=== PATIENT | female | born 1995 | race Two or more races ===

== ENCOUNTER 2019-08-02 16:10 | Inpatient (IN) | payer OTHER, MEDICAID ==
[~2019-08-02] VITALS: Ht 162.6 cm; Wt 64.4 kg
[2019-08-02 16:53] VITALS: BP 110/72
[2019-08-02] MEDS ORDERED: METHYLERGONOVINE 0.2 MG/ML AMP IM PRN ×2 (17:35→23:45)
[2019-08-02] MEDS ORDERED: NALBUPHINE 10 MG/ML AMP IVP PRN (17:35)
[2019-08-02] MEDS ORDERED: CARBOPROST 250 MCG/ML AMP IM PRN (17:35)
[2019-08-02] MEDS ORDERED: PROMETHAZINE 25 MG/ML VIAL IVP PRN (17:35)
[2019-08-02] MEDS ORDERED: OXYTOCIN 20 UNITS in LACTATED RINGERS 1,000 ML IV SCH (17:35)
[2019-08-02] MEDS ORDERED: FERR-252 PO (18:37)
[2019-08-02] MEDS ORDERED: PREN-380 PO (18:37)
[2019-08-02 18:53] LABS: BASOPHILS # (AUTO) 0.1 K/uL (0.00-0.22); BASOPHILS % (AUTO) 0.7 % (0.0-2.0); EOSINOPHILS % (AUTO) 0.4 % (0.0-4.0); HEMATOCRIT 41.9 % (36-48); HEMOGLOBIN 14.3 g/dL (12.0-16.0); LYMPHOCYTES # (AUTO) 2.2 K/uL (2.5-16.5); LYMPHOCYTES % (AUTO) 22.4 % (20.5-51.1); MEAN CORPUSCULAR HEMOGLOBIN 34 pg (27-31); MEAN CORPUSCULAR HGB CONC 34 g/dL (33-37); MEAN CORPUSCULAR VOLUME 98.5 fL (80-94); MONOCYTES # (AUTO) 0.8 K/uL (0.8-1.0); MONOCYTES % (AUTO) 7.6 % (1.7-9.3); NEUTROPHILS # (AUTO) 6.8 K/uL (1.8-7.7); NEUTROPHILS % (AUTO) 68.9 % (42.2-75.2); PLATELET COUNT (AUTO) 214 K/uL (140-450); RED BLOOD CELL COUNT(AUTO) 4.25 MIL/uL (4.20-5.40); RED CELL DISTRIBUTION WIDTH 13.2 % (11.6-13.7); WHITE BLOOD COUNT (AUTO) 9.9 K/uL (4.8-10.8)
[2019-08-02 19:02] LABS: CARBON DIOXIDE 20.7 mmol/L (21-32); CREATININE 0.6 mg/dL (0.6-1.3); POTASSIUM 3.7 mmol/L (3.5-5.1)
[2019-08-02 19:08] LABS: ALBUMIN 2.9 g/dL (3.4-5.0); TOTAL BILIRUBIN 0.3 mg/dL (0.0-1.0)
[2019-08-02 19:13] LABS: APPEARANCE,URINE CLEAR (CLEAR); BILIRUBIN,URINE NEGATIVE (NEGATIVE); BLOOD, URINE 2+ (NEGATIVE); COLOR,URINE YELLOW (YELLOW); LEUKOCYTE ESTERASE ,URINE TRACE (NEGATIVE); NITRITE, URINE NEGATIVE (NEGATIVE); PH,URINE 5.5 (5.0-9.0); UGLUCOSE NEGATIVE (NEGATIVE)
[2019-08-02] MEDS: LACTATED RINGERS 1,000 ML IV SCH ×2 (20:00→21:00)
[2019-08-02 20:34] LABS: WBC,URINE 0-5 /HPF (0-5)
[2019-08-02] MEDS ORDERED: BENZOCAINE/MENTHOL 20%-0.5% 60 GM CAN TP PRN (23:45)
[2019-08-02] MEDS ORDERED: MEASLES, MUMPS, AND RUBELLA 1 VIAL SQVAC PRN (23:45)
[2019-08-02] MEDS ORDERED: METHYLERGONOVINE 0.2 MG TAB PO PRN (23:45)
[2019-08-03] MEDS ORDERED: IBUPROFEN 600 MG TAB PO SCH (08:00)
--- NOTE | 2019-08-03 08:06 | NUR ---
PATIENT HAS BEEN SCREENED AND CATEGORIZED LOW NUTRITION RISK. PATIENT WILL BE SEEN WITHIN 7 DAYS OF ADMISSION. 08/09/[address]
[2019-08-03 08:18] LABS: BASOPHILS % (AUTO) 0.4 % (0.0-2.0); EOSINOPHILS % (AUTO) 0.3 % (0.0-4.0); HEMATOCRIT 38.7 % (36-48); HEMOGLOBIN 13.1 g/dL (12.0-16.0); LYMPHOCYTES % (AUTO) 16.7 % (20.5-51.1); MEAN CORPUSCULAR HEMOGLOBIN 33 pg (27-31); MEAN CORPUSCULAR HGB CONC 34 g/dL (33-37); MEAN CORPUSCULAR VOLUME 98.8 fL (80-94); MONOCYTES # (AUTO) 1.1 K/uL (0.8-1.0); MONOCYTES % (AUTO) 8.9 % (1.7-9.3); NEUTROPHILS % (AUTO) 73.7 % (42.2-75.2); PLATELET COUNT (AUTO) 204 K/uL (140-450); RED BLOOD CELL COUNT(AUTO) 3.92 MIL/uL (4.20-5.40); WHITE BLOOD COUNT (AUTO) 12.2 K/uL (4.8-10.8)
[2019-08-03] MEDS ORDERED: DOCUSATE SOD/SENNA 50/8.6 MG 1 TAB PO SCH (21:00)
[2019-08-04] MEDS: IBUPROFEN 600 MG TAB PO SCH ×3 (00:01→12:15)
== END 2019-08-04 13:15 | disposition home or self-care (01) | DRG 807 ==
LOC: MLD 16:10 → OBSVTOIN 17:30 → MLD 17:31 → MFCC 23:59
PROVIDERS: ADMIT Obstetrics & Gynecology; ATTEND Obstetrics & Gynecology
PROC: 10E0XZZ Delivery of Products of Conception, External Approach (ICD-10-PCS; principal; 2019-08-02)
PROC: 3E0R3BZ Introduction of Anesthetic Agent into Spinal Canal, Percutaneous Approach (ICD-10-PCS; 2019-08-02)
PROC: 00HU33Z Insertion of Infusion Device into Spinal Canal, Percutaneous Approach (ICD-10-PCS; 2019-08-02)
PROC: 3E0234Z Introduction of Serum, Toxoid and Vaccine into Muscle, Percutaneous Approach (ICD-10-PCS; 2019-08-02)
PROC: 3E0134Z Introduction of Serum, Toxoid and Vaccine into Subcutaneous Tissue, Percutaneous Approach (ICD-10-PCS; 2019-08-02)
DX: O69.81X0 Labor and delivery complicated by cord around neck, without compression, not applicable or unspecified (principal); Z37.0 Single live birth; Z3A.39 39 weeks gestation of pregnancy; O71.82 Other specified trauma to perineum and vulva; Z23 Encounter for immunization
CPT/HCPCS: 36415; 59409; 80053; 81001; 85025; 86592; 86886; 86900; 86901; 90715; G0378; J7120

== ENCOUNTER 2022-07-06 09:07 | Emergency (ER) | payer MEDICAID, OTHER ==
[~2022-07-06] VITALS: Ht 162.6 cm; Wt 53.1 kg
[~2022-07-06 09:07] MED LIST: FERR-252 PO; PREN-380 PO
[2022-07-06 09:26] VITALS: BP 106/66
[2022-07-06] MEDS ORDERED: ACETAMINOPHEN EXTRA STRENGTH 500 MG TAB PO ONE (09:35)
--- NOTE | 2022-07-06 09:55 | NUR ---
PATIENT PRESENTS TO ED WITH FEVER BIB SELF FROM HOME. PT STATES SHE HAS HAD A FEVER FOR ABOUT 3 DAYS. DENIES N/V/D; SKIN IS PINK/WARM/DRY; AAOX4 WITH EVEN AND STEADY GAIT; LUNGS CLEAR BL, PT PRESENTS WITH COUGH; HR EVEN AND REGULAR HR TACHY; PT DENIES ANY CP, SOB, AT THIS TIME; PATIENT STATES PAIN OF 0/10 AT THIS TIME; VSS; PATIENT POSITIONED FOR COMFORT; HOB ELEVATED; BEDRAILS UP X2; BED DOWN. ER MD MADE AWARE OF PT STATUS. h/S: DENIES ALLERGIES: NKDA MEDS: TYLENOL NOTED BY SHELBY RODRIGUES RN
[2022-07-06] MEDS ORDERED: NACL 0.9% 1,000 ML IV ONE (10:30)
[2022-07-06] MEDS ORDERED: ACET-10509 PO (13:52)
[2022-07-06] MEDS ORDERED: LORA10TA19 PO (13:52)
--- NOTE | 2022-07-06 14:47 | NUR ---
Patient discharged with v/s stable. Written and verbal after care instructions given and explained. Patient alert, oriented and verbalized understanding of instructions. Ambulatory with steady gait. All questions addressed prior to discharge. ID band removed. Patient advised to follow up with PMD. Rx of tylenol, claritin (sent) given. Patient educated on indication of medication including possible reaction and side effects. Opportunity to ask questions provided and answered. dx by rickie evangelista
[2022-07-06 14:48] VITALS: BP 101/58
== END 2022-07-06 14:47 | disposition home or self-care (01) ==
LOC: MED 09:07
DX: O99.512 Diseases of the respiratory system complicating pregnancy, second trimester (principal); Z20.822 Contact with and (suspected) exposure to COVID-19; J06.9 Acute upper respiratory infection, unspecified; Z3A.18 18 weeks gestation of pregnancy; Z79.899 Other long term (current) drug therapy
CPT/HCPCS: 87426; 87804; 96360; 99283; J7030

== ENCOUNTER 2022-09-19 15:22 | Emergency (ER) | payer OTHER ==
[~2022-09-19] VITALS: Ht 162.6 cm; Wt 56.7 kg
[~2022-09-19 15:22] MED LIST changes: +ACET-10509 PO; +LORA10TA19 PO
--- NOTE | 2022-09-19 15:33 | NUR ---
pt krysten and walked to bed via wheelchair
[2022-09-19 15:36] VITALS: BP 107/68
[2022-09-19] MEDS ORDERED: NACL 0.9% 1,000 ML IV ONE (15:50)
--- NOTE | 2022-09-19 16:04 | NUR ---
pt in bed 9, iv fluids started, feels tired, no pain, + heart tones, hr 148, sr up times 2
--- NOTE | 2022-09-19 17:07 | NUR ---
feels better about dizziness, denies any pain, sr on cm, o2 sat 98% ra, sr up times 2
[2022-09-19 17:15] LABS: APPEARANCE,URINE CLEAR (CLEAR); BILIRUBIN,URINE NEGATIVE (NEGATIVE); BLOOD, URINE NEGATIVE (NEGATIVE); COLOR,URINE YELLOW (YELLOW); LEUKOCYTE ESTERASE ,URINE TRACE (NEGATIVE); NITRITE, URINE NEGATIVE (NEGATIVE); PH,URINE 6.5 (5.0-9.0); UGLUCOSE NEGATIVE (NEGATIVE)
[2022-09-19 17:33] LABS: RBC,URINE 0-5 /HPF (0-5); WBC,URINE 0-5 /HPF (0-5)
[2022-09-19 18:01] VITALS: BP 113/72
--- NOTE | 2022-09-19 18:04 | NUR ---
Patient discharged with v/s stable. Written and verbal after care instructions given and explained. Patient verbalized understanding. Ambulatory with steady gait. All questions addressed prior to discharge. Advised to follow up with PMD.
== END 2022-09-19 18:04 | disposition home or self-care (01) ==
LOC: MED 15:22
DX: O26.893 Other specified pregnancy related conditions, third trimester (principal); R55 Syncope and collapse; Z79.899 Other long term (current) drug therapy; Z3A.28 28 weeks gestation of pregnancy
CPT/HCPCS: 81001; 96360; 99283; J7030